=== PATIENT | male | born 1955 | race African-American/Black ===

== ENCOUNTER 2019-07-17 20:15 | Inpatient (IN) ==
[2019-07-17] MEDS ORDERED: PANTOPRAZOLE INJ 80 MG in SODIUM CHLORIDE 0.9% 100 ML IV STA (20:46)
[2019-07-17] MEDS ORDERED: ONDANSETRON 4 MG/2 ML VIAL IV STA (20:46)
[2019-07-17 20:58] LABS: Basophils # 0.1 10*3/uL (0.0-0.2); Basophils % 1.2 % (0.0-0.8); Eosinophils % 0.5 % (0.00-10.9); Hematocrit 33.7 VOL% (42.0-52.0); Hemoglobin 10.5 GM/DL (14.0-18.0); Immature Granulocytes % 0.7 %; Immature Granulocytes Absolute 0.05 #; Lymphocytes # 1.2 10*3/uL (1.4-4.0); Lymphocytes % 16.6 % (21.2-54.2); Mean Corpuscular HGB Conc 31.2 GM/DL (32-36); Mean Corpuscular Volume 88.5 FL (87-102); Mean Platelet Volume 9.9 FL (9.6-12.0); Monocytes % 10.4 % (1.7-12.7); Neutrophils % 70.6 % (38.7-73.9); Platelet Count 158 T/CUMM (130-400); Red Blood Count 3.81 MC/CUMM (3.8-5.5); Red Cell Distribution Width 21.1 % (9.3-17.3); White Blood Count 7.3 T/CUMM (4-12)
[2019-07-17] MEDS ORDERED: PANTOPRAZOLE 40 MG VIAL IV ONE (21:10)
[2019-07-17 21:11] LABS: INR 1.2; PT Patient Result 12.9 SECS (9.8-11.9); Partial Thromboplastin Time 26.9 SECS (23.9-33.8)
[2019-07-17 21:19] LABS: Albumin 3.1 G/DL (3.4-5.0); Bilirubin,Total 2.1 MG/DL (0.2-1.0); Calcium 9.3 MG/DL (8.5-10.1); Total Protein 6.9 G/DL (6.4-8.3)
[2019-07-17] MEDS ORDERED: hydrALAZINE 20 MG/1 ML VIAL IV PRN (23:35)
[2019-07-17] MEDS ORDERED: ACETAMINOPHEN 325 MG TABLET PO PRN (23:35)
[2019-07-17] MEDS ORDERED: diphenhydrAMINE CAP 25 MG CAPSULE PO PRN (23:35)
[2019-07-17] MEDS ORDERED: GLUCAGON 1 MG VIAL IM PRN (23:35)
[2019-07-17] MEDS ORDERED: ONDANSETRON 4 MG/2 ML VIAL IV PRN (23:35)
[2019-07-17] MEDS ORDERED: DEXTROSE 50% 25 GM/50 ML VIAL IV PRN (23:35)
[2019-07-17] MEDS ORDERED: guaiFENesin/DM ER 600-30 MG TABLET PO PRN (23:35)
[2019-07-17] MEDS: PANTOPRAZOLE INJ 200 MG in SODIUM CHLORIDE 0.9% 250 ML IV SCH (23:40)
[2019-07-18 02:30] LABS: Bilirubin,Urine Negative (Negative); Blood, Urine Negative (Negative); Glucose,Urine (UA) Negative (Negative); Ketones,Urine Negative (Negative); Mucus,Urine Occasional /LPF (Occasional); Nitrite,Urine Negative (Negative); Protein,Urine Negative; RBC,Urine <1 /HPF (0-4); Squamous Epithelial Cell,Urine Occasional /HPF (0-10); Urine Appearance CLEAR (Clear); Urine Color Amber (Yellow); Urine Specific Gravity 1.015 (1.001-1.035); WBC,Urine <1 /HPF (0-6)
[2019-07-18] MEDS: SODIUM CHLORIDE 0.9% 1,000 ML IV SCH ×2 (02:34→15:59)
[2019-07-18 03:26] LABS: Basophils # 0.1 10*3/uL (0.0-0.2); Eosinophils % 0.4 % (0.00-10.9); Hematocrit 28.6 VOL% (42.0-52.0); Hemoglobin 8.9 GM/DL (14.0-18.0); Immature Granulocytes % 0.4 %; Immature Granulocytes Absolute 0.03 #; Lymphocytes # 0.7 10*3/uL (1.4-4.0); Lymphocytes % 10.6 % (21.2-54.2); Mean Corpuscular HGB Conc 31.1 GM/DL (32-36); Mean Corpuscular Volume 88.5 FL (87-102); Mean Platelet Volume 8.9 FL (9.6-12.0); Neutrophils % 77.6 % (38.7-73.9); Platelet Count 110 T/CUMM (130-400); Red Blood Count 3.23 MC/CUMM (3.8-5.5); Red Cell Distribution Width 20.7 % (9.3-17.3); White Blood Count 6.8 T/CUMM (4-12)
[2019-07-18 03:49] LABS: Albumin 2.4 G/DL (3.4-5.0); Bilirubin,Total 1.7 MG/DL (0.2-1.0); Calcium 8.8 MG/DL (8.5-10.1); Osmolality,Calculated 290.8 MOS/KG (273-304); Total Protein 5.8 G/DL (6.4-8.3)
[2019-07-18 04:00] LABS: Troponin I 0.109 NG/ML (0.00-0.045)
[2019-07-18 07:57] LABS: Troponin I 0.107 NG/ML (0.00-0.045)
[2019-07-18] MEDS ORDERED: FUROSEMIDE 40 MG TABLET PO SCH (09:00)
[2019-07-18] MEDS ORDERED: METOPROLOL SUCCINATE XL 25 MG TABLET PO SCH (09:00)
[2019-07-18] MEDS: CHOLECALCIFEROL 1,000 UNIT TABLET PO SCH (09:16)
[2019-07-18] MEDS: carvediloL 6.25 MG TABLET PO SCH ×2 (09:16→17:04)
[2019-07-18 10:04] LABS: Hematocrit 28.8 VOL% (42.0-52.0); Hemoglobin 8.9 GM/DL (14.0-18.0)
[2019-07-18 14:59] LABS: CKMB % 3.5 %; Troponin I 0.086 NG/ML (0.00-0.045)
[2019-07-18 15:17] LABS: Hematocrit 28.8 VOL% (42.0-52.0); Hemoglobin 8.9 GM/DL (14.0-18.0)
[2019-07-18] MEDS: LACTULOSE 20 GM/30 ML UDCUP PO SCH ×2 (15:57→22:24)
[2019-07-18 16:30] LABS: Hepatitis B Core IgM Quant 0.17 Index; Hepatitis B Surface Ag Quant 0.13 Index; Hepatitis B Surface Ag Result Negative (Negative); Hepatitis C Virus Ab Quant 0.17 Index; Hepatitis C Virus Ab Result Negative (Negative)
[2019-07-18] MEDS: LORazepam 2 MG/1 ML VIAL IV PRN (17:11)
[2019-07-18] MEDS: FOLIC ACID 1 MG TABLET PO SCH (17:15)
[2019-07-18] MEDS: THIAMINE 100 MG TABLET PO SCH (17:15)
[2019-07-18] MEDS: MULTIVITAMIN (CENTRUM) TABLET PO SCH (17:15)
[2019-07-18] MEDS: PANTOPRAZOLE INJ 200 MG in SODIUM CHLORIDE 0.9% 250 ML IV SCH (22:24)
[2019-07-19] MEDS: SODIUM CHLORIDE 0.9% 1,000 ML IV SCH ×2 (03:00→18:33)
[2019-07-19 05:41] LABS: Basophils % 0.8 % (0.0-0.8); Eosinophils # 0.1 10*3/uL (0.0-0.87); Eosinophils % 1.1 % (0.00-10.9); Hematocrit 29.5 VOL% (42.0-52.0); Hemoglobin 8.6 GM/DL (14.0-18.0); Immature Granulocytes % 0.4 %; Immature Granulocytes Absolute 0.02 #; Lymphocytes # 0.6 10*3/uL (1.4-4.0); Lymphocytes % 10.7 % (21.2-54.2); Mean Corpuscular HGB Conc 29.2 GM/DL (32-36); Mean Corpuscular Volume 93.1 FL (87-102); Mean Platelet Volume 9.1 FL (9.6-12.0); Monocytes % 11.1 % (1.7-12.7); NRBC # 0.03 10*3/uL; Neutrophils % 75.9 % (38.7-73.9); Platelet Count 117 T/CUMM (130-400); Red Blood Count 3.17 MC/CUMM (3.8-5.5); Red Cell Distribution Width 21.2 % (9.3-17.3); White Blood Count 5.2 T/CUMM (4-12)
[2019-07-19 05:58] LABS: Albumin 2.6 G/DL (3.4-5.0); Bilirubin,Direct 1.2 MG/DL (0.0-0.20); Bilirubin,Total 2.2 MG/DL (0.2-1.0); Total Protein 6.3 G/DL (6.4-8.3)
[2019-07-19 05:59] LABS: Albumin 2.6 G/DL (3.4-5.0); Bilirubin,Total 2.1 MG/DL (0.2-1.0); Calcium 8.6 MG/DL (8.5-10.1); Osmolality,Calculated 290.8 MOS/KG (273-304); Total Protein 6.2 G/DL (6.4-8.3)
[2019-07-19] MEDS ORDERED: PANTOPRAZOLE 40 MG VIAL IV SCH (09:00)
[2019-07-19] MEDS ORDERED: ETOMIDATE 20 MG/10 ML VIAL IV ONE (09:00)
[2019-07-19] MEDS ORDERED: propofoL 200 MG/20 ML VIAL IV ONE (09:00)
[2019-07-19] MEDS ORDERED: LIDOCAINE 2% 5 ML VIAL ONE (09:00)
[2019-07-19] MEDS: LACTULOSE 20 GM/30 ML UDCUP PO SCH ×4 (10:35→21:27)
[2019-07-19] MEDS: carvediloL 6.25 MG TABLET PO SCH ×3 (10:36→18:34)
[2019-07-19] MEDS: THIAMINE 100 MG TABLET PO SCH (10:36)
[2019-07-19] MEDS: MULTIVITAMIN (CENTRUM) TABLET PO SCH (10:36)
[2019-07-19] MEDS: FOLIC ACID 1 MG TABLET PO SCH (10:36)
[2019-07-19] MEDS: CHOLECALCIFEROL 1,000 UNIT TABLET PO SCH (10:36)
[2019-07-19] MEDS: chlordiazePOXIDE 10 MG CAPSULE PO SCH ×2 (10:42→21:27)
[2019-07-19 16:09] LABS: Hematocrit 29.7 VOL% (42.0-52.0); Hemoglobin 8.8 GM/DL (14.0-18.0)
[2019-07-20 06:26] LABS: Basophils # 0.1 10*3/uL (0.0-0.2); Basophils % 0.8 % (0.0-0.8); Eosinophils # 0.1 10*3/uL (0.0-0.87); Eosinophils % 2.1 % (0.00-10.9); Hematocrit 28.9 VOL% (42.0-52.0); Hemoglobin 8.5 GM/DL (14.0-18.0); Immature Granulocytes % 0.3 %; Immature Granulocytes Absolute 0.02 #; Lymphocytes # 0.6 10*3/uL (1.4-4.0); Lymphocytes % 10.2 % (21.2-54.2); Mean Corpuscular HGB Conc 29.4 GM/DL (32-36); Mean Corpuscular Volume 94.1 FL (87-102); Mean Platelet Volume 10.5 FL (9.6-12.0); Monocytes % 9.7 % (1.7-12.7); NRBC # 0.04 10*3/uL; Neutrophils % 76.9 % (38.7-73.9); Platelet Count 128 T/CUMM (130-400); Red Blood Count 3.07 MC/CUMM (3.8-5.5); Red Cell Distribution Width 21.1 % (9.3-17.3); White Blood Count 6.1 T/CUMM (4-12)
[2019-07-20 06:49] LABS: Calcium 8.8 MG/DL (8.5-10.1)
[2019-07-20] MEDS: SODIUM CHLORIDE 0.9% 1,000 ML IV SCH ×2 (10:25→17:00)
[2019-07-20] MEDS: THIAMINE 100 MG TABLET PO SCH (10:26)
[2019-07-20] MEDS: PANTOPRAZOLE 40 MG TABLET PO SCH (10:26)
[2019-07-20] MEDS: MULTIVITAMIN (CENTRUM) TABLET PO SCH (10:26)
[2019-07-20] MEDS: CHOLECALCIFEROL 1,000 UNIT TABLET PO SCH (10:26)
[2019-07-20] MEDS: carvediloL 6.25 MG TABLET PO SCH ×2 (10:26→17:36)
[2019-07-20] MEDS: chlordiazePOXIDE 10 MG CAPSULE PO SCH (10:26)
[2019-07-20] MEDS: LACTULOSE 20 GM/30 ML UDCUP PO SCH ×3 (10:27→17:36)
[2019-07-20] MEDS: FOLIC ACID 1 MG TABLET PO SCH (10:27)
[2019-07-20] MEDS: RIFAXIMIN 550 MG TABLET PO SCH (14:23)
[2019-07-20 19:10] LABS: ABG Base Excess -1.5 MMOL/L (-2.5-2.5); ABG HCO3 23.2 MMOL/L (20-26); ABG TCO2 27.1 MMOL/L (23-27); Allen Test Positive
[2019-07-20 19:14] LABS: ABG PH 7.177 (7.35-7.45)
[2019-07-20 19:15] LABS: ABG PCO2 76.5 MM HG (35-48)
[2019-07-20 19:36] LABS: Calcium 8.9 MG/DL (8.5-10.1); Osmolality,Calculated 279.8 MOS/KG (273-304)
[2019-07-20 19:56] LABS: CKMB % 3.3 %; Troponin I 0.038 NG/ML (0.00-0.045)
[2019-07-20] MEDS: ALBUTEROL/IPRATROPIUM 3 ML NEB RESP TX SCH (23:50)
[2019-07-20 23:56] LABS: ABG Base Excess 0.8 MMOL/L (-2.5-2.5); ABG HCO3 24.8 MMOL/L (20-26); ABG PCO2 66.8 MM HG (35-48); ABG PO2 50.5 MM HG (80-95); ABG TCO2 27.6 MMOL/L (23-27)
[2019-07-21] MEDS: LACTULOSE 20 GM/30 ML UDCUP PO SCH ×6 (01:28→21:16)
[2019-07-21] MEDS: RIFAXIMIN 550 MG TABLET PO SCH ×3 (01:28→21:16)
[2019-07-21 01:52] LABS: ABG Base Excess 1.1 MMOL/L (-2.5-2.5); ABG HCO3 25.3 MMOL/L (20-26); ABG Oxygen Saturation 89.7 % (95-100); ABG PCO2 61.2 MM HG (35-48); ABG PH 7.281 (7.35-7.45); ABG PO2 62.8 MM HG (80-95); ABG TCO2 27.1 MMOL/L (23-27); Allen Test Positive; Pt O2 Delivery Device BIPAP
[2019-07-21] MEDS: ALBUTEROL/IPRATROPIUM 3 ML NEB RESP TX SCH ×5 (02:53→19:27)
[2019-07-21 03:02] LABS: Bilirubin,Direct 1.14 MG/DL (0.0-0.20); Bilirubin,Indirect 0.5 MG/DL (0.0-1.0); Bilirubin,Total 1.6 MG/DL (0.2-1.0); Total Protein 7.1 G/DL (6.4-8.3)
[2019-07-21 03:08] LABS: CKMB % 4.2 %; Troponin I 0.03 NG/ML (0.00-0.045)
[2019-07-21 03:14] LABS: INR 1.1; PT Patient Result 11.9 SECS (9.8-11.9); Partial Thromboplastin Time 28.5 SECS (23.9-33.8)
[2019-07-21] MEDS ORDERED: FUROSEMIDE 40 MG/4 ML VIAL IV SCH (08:00)
[2019-07-21] MEDS ORDERED: VANCOMYCIN INJ 1,500 MG in SODIUM CHLORIDE 0.9% 500 ML IV ONE (08:00)
[2019-07-21 08:03] LABS: Basophils % 0.1 % (0.0-0.8); Eosinophils % 0.1 % (0.00-10.9); Hematocrit 29.1 VOL% (42.0-52.0); Hemoglobin 8.5 GM/DL (14.0-18.0); Immature Granulocytes % 0.6 %; Immature Granulocytes Absolute 0.09 #; Lymphocytes # 0.4 10*3/uL (1.4-4.0); Lymphocytes % 2.8 % (21.2-54.2); Mean Corpuscular HGB Conc 29.2 GM/DL (32-36); Mean Corpuscular Volume 93.9 FL (87-102); Mean Platelet Volume 10.5 FL (9.6-12.0); Monocytes % 7.5 % (1.7-12.7); Neutrophils % 88.9 % (38.7-73.9); Platelet Count 129 T/CUMM (130-400); Red Cell Distribution Width 20.6 % (9.3-17.3); White Blood Count 15.5 T/CUMM (4-12)
[2019-07-21 08:28] LABS: Hypochromasia 2+; Lymphocytes 5 % (20-55); Nucleated Red Blood Cells 1 (0-5); Ovalocytes Slight; Segmented Neutrophils 89 % (50-85); Total Cells Counted 100
[2019-07-21 08:31] LABS: Calcium 9.3 MG/DL (8.5-10.1); Osmolality,Calculated 286.3 MOS/KG (273-304)
[2019-07-21] MEDS: THIAMINE 100 MG TABLET PO SCH (09:19)
[2019-07-21] MEDS: PANTOPRAZOLE 40 MG TABLET PO SCH (09:19)
[2019-07-21] MEDS: FOLIC ACID 1 MG TABLET PO SCH (09:19)
[2019-07-21] MEDS: CHOLECALCIFEROL 1,000 UNIT TABLET PO SCH (09:19)
[2019-07-21] MEDS: MULTIVITAMIN (CENTRUM) TABLET PO SCH (09:19)
[2019-07-21] MEDS: carvediloL 6.25 MG TABLET PO SCH ×2 (09:20→17:19)
[2019-07-21] MEDS: LORazepam 2 MG/1 ML VIAL IV PRN (09:21)
[2019-07-21] MEDS: PIPERACILLIN/TAZOBACTAM 3,375 MG in SODIUM CHLORIDE 0.9% 100 ML IV SCH ×2 (10:37→18:20)
[2019-07-21 12:09] LABS: % Iron Saturation 6.9 % (18-50)
[2019-07-22] MEDS: ALBUTEROL/IPRATROPIUM 3 ML NEB RESP TX SCH ×7 (00:47→23:43)
[2019-07-22] MEDS: PIPERACILLIN/TAZOBACTAM 3,375 MG in SODIUM CHLORIDE 0.9% 100 ML IV SCH ×3 (02:19→17:38)
[2019-07-22 06:46] LABS: Calcium 9.3 MG/DL (8.5-10.1); Osmolality,Calculated 279.5 MOS/KG (273-304)
[2019-07-22 07:12] LABS: Basophils % 0.2 % (0.0-0.8); Eosinophils # 0.2 10*3/uL (0.0-0.87); Eosinophils % 0.8 % (0.00-10.9); Hematocrit 28.5 VOL% (42.0-52.0); Hemoglobin 8.6 GM/DL (14.0-18.0); Immature Granulocytes % 1.6 %; Immature Granulocytes Absolute 0.29 #; Lymphocytes # 0.6 10*3/uL (1.4-4.0); Lymphocytes % 3.6 % (21.2-54.2); Mean Corpuscular HGB Conc 30.2 GM/DL (32-36); Mean Corpuscular Volume 93.4 FL (87-102); Mean Platelet Volume 11.1 FL (9.6-12.0); NRBC # 0.03 10*3/uL; Neutrophils % 86.8 % (38.7-73.9); Red Blood Count 3.05 MC/CUMM (3.8-5.5); Red Cell Distribution Width 20.5 % (9.3-17.3); White Blood Count 17.7 T/CUMM (4-12)
[2019-07-22 07:14] LABS: Platelet Count 75 T/CUMM (130-400)
[2019-07-22 08:28] LABS: Band Neutrophils 3 % (0-10); Hypochromasia 2+; Lymphocytes 2 % (20-55); Polychromasia Slight; Segmented Neutrophils 93 % (50-85); Total Cells Counted 100
[2019-07-22 08:29] LABS: Anisocytosis 1+; Microcytosis 1+
[2019-07-22] MEDS: MULTIVITAMIN (CENTRUM) TABLET PO SCH (09:46)
[2019-07-22] MEDS: PANTOPRAZOLE 40 MG TABLET PO SCH (09:46)
[2019-07-22] MEDS: carvediloL 6.25 MG TABLET PO SCH ×2 (09:46→17:38)
[2019-07-22] MEDS: THIAMINE 100 MG TABLET PO SCH (09:46)
[2019-07-22] MEDS: RIFAXIMIN 550 MG TABLET PO SCH ×2 (09:46→21:18)
[2019-07-22] MEDS: CHOLECALCIFEROL 1,000 UNIT TABLET PO SCH (09:46)
[2019-07-22] MEDS: FOLIC ACID 1 MG TABLET PO SCH (09:47)
[2019-07-22] MEDS: LACTULOSE 20 GM/30 ML UDCUP PO SCH ×4 (09:47→21:18)
[2019-07-22] MEDS ORDERED: VANCOMYCIN INJ 1,250 MG in SODIUM CHLORIDE 0.9% 250 ML IV SCH (12:00)
[2019-07-22] MEDS ORDERED: FUROSEMIDE 40 MG/4 ML VIAL IV ONE (15:43)
[2019-07-23] MEDS: PIPERACILLIN/TAZOBACTAM 3,375 MG in SODIUM CHLORIDE 0.9% 100 ML IV SCH ×3 (01:35→17:54)
[2019-07-23] MEDS: ALBUTEROL/IPRATROPIUM 3 ML NEB RESP TX SCH ×5 (02:10→19:30)
[2019-07-23 06:36] LABS: Basophils % 0.1 % (0.0-0.8); Eosinophils % 0.1 % (0.00-10.9); Hematocrit 29.9 VOL% (42.0-52.0); Hemoglobin 8.8 GM/DL (14.0-18.0); Immature Granulocytes % 0.7 %; Immature Granulocytes Absolute 0.09 #; Lymphocytes # 0.5 10*3/uL (1.4-4.0); Lymphocytes % 3.8 % (21.2-54.2); Mean Corpuscular HGB Conc 29.4 GM/DL (32-36); Mean Corpuscular Volume 93.7 FL (87-102); Mean Platelet Volume 10.7 FL (9.6-12.0); Monocytes % 8.4 % (1.7-12.7); NRBC # 0.04 10*3/uL; Neutrophils % 86.9 % (38.7-73.9); Red Blood Count 3.19 MC/CUMM (3.8-5.5); Red Cell Distribution Width 20.4 % (9.3-17.3); White Blood Count 13.5 T/CUMM (4-12)
[2019-07-23 06:39] LABS: Calcium 9.3 MG/DL (8.5-10.1); Osmolality,Calculated 278.1 MOS/KG (273-304)
[2019-07-23 06:54] LABS: Platelet Count 133 T/CUMM (130-400)
[2019-07-23 07:11] LABS: Albumin 2.6 G/DL (3.4-5.0); Bilirubin,Total 2.5 MG/DL (0.2-1.0); Calcium 9.3 MG/DL (8.5-10.1)
[2019-07-23 08:26] LABS: Band Neutrophils 1 % (0-10); Hypochromasia 1+; Lymphocytes 4 % (20-55); Microcytosis 1+; Nucleated Red Blood Cells 1 (0-5); Polychromasia Slight; Segmented Neutrophils 88 % (50-85); Target Cells Slight; Total Cells Counted 100
[2019-07-23 08:27] LABS: Platelet Estimate Adequate
[2019-07-23] MEDS: VANCOMYCIN INJ 1,250 MG in SODIUM CHLORIDE 0.9% 250 ML IV SCH ×2 (08:45→19:44)
[2019-07-23] MEDS: THIAMINE 100 MG TABLET PO SCH (09:58)
[2019-07-23] MEDS: MULTIVITAMIN (CENTRUM) TABLET PO SCH (09:58)
[2019-07-23] MEDS: CHOLECALCIFEROL 1,000 UNIT TABLET PO SCH (09:58)
[2019-07-23] MEDS: LACTULOSE 20 GM/30 ML UDCUP PO SCH ×4 (09:58→20:33)
[2019-07-23] MEDS: carvediloL 6.25 MG TABLET PO SCH ×2 (09:58→17:54)
[2019-07-23] MEDS: PANTOPRAZOLE 40 MG TABLET PO SCH (09:58)
[2019-07-23] MEDS: FOLIC ACID 1 MG TABLET PO SCH (09:58)
[2019-07-23] MEDS: RIFAXIMIN 550 MG TABLET PO SCH ×2 (09:59→20:34)
[2019-07-24] MEDS: ALBUTEROL/IPRATROPIUM 3 ML NEB RESP TX SCH ×6 (00:23→19:38)
[2019-07-24] MEDS: PIPERACILLIN/TAZOBACTAM 3,375 MG in SODIUM CHLORIDE 0.9% 100 ML IV SCH ×2 (01:30→10:38)
[2019-07-24 06:39] LABS: Basophils % 0.1 % (0.0-0.8); Eosinophils % 0.4 % (0.00-10.9); Hematocrit 29.8 VOL% (42.0-52.0); Hemoglobin 8.9 GM/DL (14.0-18.0); Immature Granulocytes % 0.4 %; Immature Granulocytes Absolute 0.04 #; Lymphocytes # 0.5 10*3/uL (1.4-4.0); Lymphocytes % 4.4 % (21.2-54.2); Mean Corpuscular HGB Conc 29.9 GM/DL (32-36); Mean Corpuscular Volume 92.3 FL (87-102); Mean Platelet Volume 10.2 FL (9.6-12.0); Monocytes % 8.1 % (1.7-12.7); NRBC # 0.04 10*3/uL; Neutrophils % 86.6 % (38.7-73.9); Platelet Count 138 T/CUMM (130-400); Red Blood Count 3.23 MC/CUMM (3.8-5.5); Red Cell Distribution Width 19.8 % (9.3-17.3); White Blood Count 10.2 T/CUMM (4-12)
[2019-07-24 07:01] LABS: Anisocytosis 3+; Band Neutrophils 3 % (0-10); Lymphocytes 2 % (20-55); Nucleated Red Blood Cells 2 (0-5); Platelet Estimate Adequate; Segmented Neutrophils 86 % (50-85); Target Cells Few; Total Cells Counted 100
[2019-07-24 07:02] LABS: Hypochromasia Slight; Macrocytosis 1+; Poikilocytosis Slight; Polychromasia Slight
[2019-07-24 07:05] LABS: Calcium 9.4 MG/DL (8.5-10.1); Osmolality,Calculated 280.2 MOS/KG (273-304)
[2019-07-24 07:12] LABS: Albumin 2.8 G/DL (3.4-5.0); Bilirubin,Direct 1.04 MG/DL (0.0-0.20); Bilirubin,Indirect 0.8 MG/DL (0.0-1.0); Bilirubin,Total 1.8 MG/DL (0.2-1.0); Total Protein 6.9 G/DL (6.4-8.3)
[2019-07-24] MEDS: RIFAXIMIN 550 MG TABLET PO SCH ×3 (09:19→20:16)
[2019-07-24] MEDS: MULTIVITAMIN (CENTRUM) TABLET PO SCH (09:19)
[2019-07-24] MEDS: LACTULOSE 20 GM/30 ML UDCUP PO SCH ×5 (09:19→20:16)
[2019-07-24] MEDS: CHOLECALCIFEROL 1,000 UNIT TABLET PO SCH (09:19)
[2019-07-24] MEDS: PANTOPRAZOLE 40 MG TABLET PO SCH (09:19)
[2019-07-24] MEDS: carvediloL 6.25 MG TABLET PO SCH ×2 (09:19→17:19)
[2019-07-24] MEDS: FOLIC ACID 1 MG TABLET PO SCH (09:19)
[2019-07-24] MEDS: THIAMINE 100 MG TABLET PO SCH (09:19)
[2019-07-24] MEDS: VANCOMYCIN INJ 1,250 MG in SODIUM CHLORIDE 0.9% 250 ML IV SCH (10:04)
[2019-07-24 17:11] LABS: ABG Base Excess -3.9 MMOL/L (-2.5-2.5); ABG HCO3 23.9 MMOL/L (20-26); ABG PCO2 53.9 MM HG (35-48); ABG PH 7.264 (7.35-7.45); ABG PO2 145.8 MM HG (80-95); ABG TCO2 25.5 MMOL/L (23-27)
[2019-07-24 17:13] LABS: ABG Oxygen Saturation 98.5 % (95-100)
[2019-07-24] MEDS ORDERED: ALBUMIN 25% 25 GM in PREMIX 1 EACH IV ONE (20:38)
[2019-07-25] MEDS: ALBUTEROL/IPRATROPIUM 3 ML NEB RESP TX SCH ×6 (00:12→20:15)
[2019-07-25 04:47] LABS: Basophils % 0.2 % (0.0-0.8); Eosinophils % 0.2 % (0.00-10.9); Hematocrit 27.7 VOL% (42.0-52.0); Hemoglobin 8.1 GM/DL (14.0-18.0); Immature Granulocytes % 0.8 %; Immature Granulocytes Absolute 0.05 #; Lymphocytes # 0.3 10*3/uL (1.4-4.0); Lymphocytes % 4.6 % (21.2-54.2); Mean Corpuscular HGB Conc 29.2 GM/DL (32-36); Mean Corpuscular Volume 94.9 FL (87-102); Mean Platelet Volume 10.8 FL (9.6-12.0); Monocytes % 10.5 % (1.7-12.7); NRBC # 0.11 10*3/uL; Neutrophils % 83.7 % (38.7-73.9); Platelet Count 114 T/CUMM (130-400); Red Blood Count 2.92 MC/CUMM (3.8-5.5); Red Cell Distribution Width 20.2 % (9.3-17.3); White Blood Count 6.3 T/CUMM (4-12)
[2019-07-25 05:07] LABS: Albumin 2.9 G/DL (3.4-5.0); Bilirubin,Total 2.2 MG/DL (0.2-1.0); Calcium 9.6 MG/DL (8.5-10.1); Osmolality,Calculated 277.8 MOS/KG (273-304); Total Protein 7.1 G/DL (6.4-8.3)
[2019-07-25 05:31] LABS: Lymphocytes 9 % (20-55); Nucleated Red Blood Cells 3 (0-5); Segmented Neutrophils 81 % (50-85); Total Cells Counted 100
[2019-07-25 05:32] LABS: Hypochromasia 1+; Microcytosis 1+; Ovalocytes Few; Platelet Estimate Decreased; Polychromasia Slight
[2019-07-25 05:33] LABS: Anisocytosis 1+
[2019-07-25 05:44] LABS: ABG Base Excess -2.5 MMOL/L (-2.5-2.5); ABG HCO3 22.2 MMOL/L (20-26); ABG Oxygen Saturation 88.1 % (95-100); ABG PO2 67.4 MM HG (80-95); ABG TCO2 25.7 MMOL/L (23-27); Allen Test Positive; Pt O2 Delivery Device BIPAP
[2019-07-25 05:47] LABS: ABG PCO2 71.1 MM HG (35-48); ABG PH 7.186 (7.35-7.45)
[2019-07-25] MEDS ORDERED: ALBUMIN 25% 25 GM in PREMIX 1 EACH IV ONE (08:30)
[2019-07-25] MEDS ORDERED: SODIUM BICARB INJ 150 MEQ in DEXTROSE 5% 850 ML IV SCH (08:30)
[2019-07-25] MEDS: PANTOPRAZOLE 40 MG TABLET PO SCH (09:00)
[2019-07-25] MEDS: RIFAXIMIN 550 MG TABLET PO SCH ×2 (09:00→21:51)
[2019-07-25] MEDS: CHOLECALCIFEROL 1,000 UNIT TABLET PO SCH (09:00)
[2019-07-25] MEDS: THIAMINE 100 MG TABLET PO SCH (09:00)
[2019-07-25 09:01] LABS: ABG Base Excess -1.3 MMOL/L (-2.5-2.5); ABG HCO3 22.5 MMOL/L (20-26); ABG Oxygen Saturation 38.2 % (95-100); ABG TCO2 27.8 MMOL/L (23-27)
[2019-07-25 09:03] LABS: ABG PH 7.173 (7.35-7.45)
[2019-07-25 09:04] LABS: ABG PCO2 78.3 MM HG (35-48); ABG PO2 30.2 MM HG (80-95)
[2019-07-25 10:13] LABS: INR 1.2; PT Patient Result 12.6 SECS (9.8-11.9)
[2019-07-25] MEDS: MEROPENEM 2,000 MG in SODIUM CHLORIDE 0.9% 100 ML IV SCH ×2 (10:58→21:51)
[2019-07-25 12:24] LABS: ABG Base Excess -2.2 MMOL/L (-2.5-2.5); ABG HCO3 22.5 MMOL/L (20-26); ABG Oxygen Saturation 91.7 % (95-100); ABG PCO2 68.9 MM HG (35-48); ABG PO2 74.8 MM HG (80-95); ABG TCO2 25.6 MMOL/L (23-27); Allen Test Positive; Pt O2 Delivery Device BIPAP
[2019-07-25 12:25] LABS: ABG PH 7.199 (7.35-7.45)
[2019-07-25] MEDS: LACTULOSE 20 GM/30 ML UDCUP PO SCH ×4 (13:00→21:51)
[2019-07-25] MEDS ORDERED: CALCIUM GLUCONATE 1,000 MG in SODIUM CHLORIDE 0.9% 100 ML IV ONE (13:24)
[2019-07-25] MEDS ORDERED: CALCIUM GLUCONATE 1,000 MG/10 ML VIAL IV ONE (13:30)
[2019-07-25] MEDS: MULTIVITAMIN (CENTRUM) TABLET PO SCH (13:33)
[2019-07-25] MEDS: FOLIC ACID 1 MG TABLET PO SCH (13:38)
[2019-07-25] MEDS ORDERED: ETOMIDATE 20 MG/10 ML VIAL IV ONE ×2 (16:00→16:23)
[2019-07-25] MEDS ORDERED: SUCCINYLCHOLINE 200 MG/10 ML VIAL ONE (16:01)
[2019-07-25] MEDS ORDERED: SUCCINYLCHOLINE 200 MG/10 ML VIAL IV ONE (16:23)
[2019-07-25] MEDS ORDERED: NOREPINEPHRINE 4 MG/4 ML VIAL IV ONE (16:44)
[2019-07-25] MEDS ORDERED: MIDAZOLAM 2 MG/2 ML VIAL IV ONE (16:50)
[2019-07-25] MEDS ORDERED: MIDAZOLAM 10 MG/2 ML VIAL ONE (16:52)
[2019-07-25] MEDS: NOREPINEPHRINE 8 MG in SODIUM CHLORIDE 0.9% 242 ML IV PRN (17:01)
[2019-07-25 18:16] LABS: ABG Base Excess -2.1 MMOL/L (-2.5-2.5); ABG HCO3 22.7 MMOL/L (20-26); ABG Oxygen Saturation 98.4 % (95-100); ABG PCO2 49.7 MM HG (35-48); ABG PH 7.299 (7.35-7.45); ABG TCO2 23.2 MMOL/L (23-27)
[2019-07-25] MEDS: MIDAZOLAM 100 MG in SODIUM CHLORIDE 0.9% 80 ML IV PRN (18:30)
[2019-07-25 19:00] LABS: Bilirubin,Total 1.8 MG/DL (0.2-1.0); Calcium 9.5 MG/DL (8.5-10.1); Osmolality,Calculated 282.5 MOS/KG (273-304); Total Protein 6.7 G/DL (6.4-8.3)
[2019-07-25] MEDS: fentaNYL INJ 1,250 MCG in SODIUM CHLORIDE 0.9% 225 ML IV PRN (19:40)
[2019-07-25] MEDS: CALCIUM GLUCONATE 2,000 MG in SODIUM CHLORIDE 0.9% 100 ML IV ONE ×2 (19:44→20:20)
[2019-07-25] MEDS: SODIUM CHLORIDE 0.9% 1,000 ML IV SCH (20:00)
[2019-07-25] MEDS: OCTREOTIDE 500 MCG in SODIUM CHLORIDE 0.9% 100 ML IV SCH (21:52)
[2019-07-26] MEDS: fentaNYL INJ 1,250 MCG in SODIUM CHLORIDE 0.9% 225 ML IV PRN ×2 (00:42→05:58)
[2019-07-26] MEDS: ALBUTEROL/IPRATROPIUM 3 ML NEB RESP TX SCH ×7 (01:10→23:38)
[2019-07-26] MEDS: MIDAZOLAM 100 MG in SODIUM CHLORIDE 0.9% 80 ML IV PRN (03:13)
[2019-07-26] MEDS: SODIUM CHLORIDE 0.9% 1,000 ML IV SCH ×3 (03:17→20:12)
[2019-07-26 04:24] LABS: ABG Base Excess -2.1 MMOL/L (-2.5-2.5); ABG HCO3 22.6 MMOL/L (20-26); ABG Oxygen Saturation 87.8 % (95-100); ABG PCO2 42.8 MM HG (35-48); ABG PH 7.347 (7.35-7.45); ABG TCO2 22.3 MMOL/L (23-27)
[2019-07-26 06:46] LABS: Bilirubin,Urine Negative (Negative); Blood, Urine Large mg/dL (Negative); Glucose,Urine (UA) 50 mg/dL (Negative); Granular Casts,Urine 33 /LPF (0-1); Hyaline Casts,Urine 166 /LPF (0-3); Ketones,Urine Negative (Negative); Nitrite,Urine Negative (Negative); Protein,Urine 100 MG/DL; RBC,Urine 8180 /HPF (0-4); Sperm,Urine Few /HPF (Negative); Urine Specific Gravity 1.021 (1.001-1.035); Urine Urobilinogen < 2.0 EU/DL (0.2-1.0); WBC,Urine 487 /HPF (0-6)
[2019-07-26 06:47] LABS: Urine Appearance Turbid (Clear); Urine Color Brown (Yellow)
[2019-07-26] MEDS: MEROPENEM 500 MG in SODIUM CHLORIDE 0.9% 100 ML IV SCH ×2 (09:30→20:25)
[2019-07-26] MEDS: THIAMINE 100 MG TABLET PO SCH (09:46)
[2019-07-26] MEDS: MULTIVITAMIN (CENTRUM) TABLET PO SCH (09:46)
[2019-07-26] MEDS: CHOLECALCIFEROL 1,000 UNIT TABLET PO SCH (09:47)
[2019-07-26] MEDS: LACTULOSE 20 GM/30 ML UDCUP PO SCH ×4 (09:47→20:25)
[2019-07-26] MEDS: FOLIC ACID 1 MG TABLET PO SCH (09:47)
[2019-07-26] MEDS: RIFAXIMIN 550 MG TABLET PO SCH ×2 (09:47→20:26)
[2019-07-26] MEDS: PANTOPRAZOLE 40 MG VIAL IV SCH (09:49)
[2019-07-26] MEDS: methylPREDNISolone SOD SUC 40 MG/1 ML VIAL IV SCH ×2 (09:50→16:00)
[2019-07-26 11:55] LABS: Antinuclear Ab, S 0.9 U
[2019-07-26] MEDS: ALBUMIN 25% 12.5 GM in PREMIX 1 EACH IV SCH ×2 (13:45→20:25)
[2019-07-26] MEDS: OCTREOTIDE 500 MCG in SODIUM CHLORIDE 0.9% 100 ML IV SCH (16:00)
[2019-07-26 17:08] LABS: Eosinophils % 0.4 % (0.00-10.9); Hematocrit 23.4 VOL% (42.0-52.0); Hemoglobin 7.1 GM/DL (14.0-18.0); Immature Granulocytes % 0.6 %; Immature Granulocytes Absolute 0.04 #; Lymphocytes # 0.4 10*3/uL (1.4-4.0); Lymphocytes % 5.1 % (21.2-54.2); Mean Corpuscular HGB Conc 30.3 GM/DL (32-36); Mean Corpuscular Volume 91.8 FL (87-102); Mean Platelet Volume 10.5 FL (9.6-12.0); Monocytes % 8.8 % (1.7-12.7); NRBC # 0.17 10*3/uL; Neutrophils % 85.1 % (38.7-73.9); Platelet Count 116 T/CUMM (130-400); Red Blood Count 2.55 MC/CUMM (3.8-5.5); Red Cell Distribution Width 19.9 % (9.3-17.3); White Blood Count 6.8 T/CUMM (4-12)
[2019-07-26 17:18] LABS: Albumin 2.6 G/DL (3.4-5.0); Bilirubin,Total 1.5 MG/DL (0.2-1.0); Calcium 9.2 MG/DL (8.5-10.1); Osmolality,Calculated 283.4 MOS/KG (273-304); Total Protein 5.9 G/DL (6.4-8.3)
[2019-07-26] MEDS: NOREPINEPHRINE 8 MG in SODIUM CHLORIDE 0.9% 242 ML IV PRN (17:30)
[2019-07-27] MEDS: methylPREDNISolone SOD SUC 40 MG/1 ML VIAL IV SCH ×3 (02:30→17:16)
[2019-07-27] MEDS: ALBUTEROL/IPRATROPIUM 3 ML NEB RESP TX SCH ×6 (02:37→23:23)
[2019-07-27] MEDS: NOREPINEPHRINE 8 MG in SODIUM CHLORIDE 0.9% 242 ML IV PRN ×3 (03:30→21:00)
[2019-07-27 03:52] LABS: Basophils % 0.1 % (0.0-0.8); Hematocrit 27.4 VOL% (42.0-52.0); Hemoglobin 8.3 GM/DL (14.0-18.0); Immature Granulocytes % 0.6 %; Immature Granulocytes Absolute 0.05 #; Lymphocytes # 0.1 10*3/uL (1.4-4.0); Lymphocytes % 1.4 % (21.2-54.2); Mean Corpuscular HGB Conc 30.3 GM/DL (32-36); Mean Platelet Volume 10.6 FL (9.6-12.0); Monocytes % 1.5 % (1.7-12.7); NRBC # 0.31 10*3/uL; Neutrophils % 96.4 % (38.7-73.9); Platelet Count 147 T/CUMM (130-400); Red Blood Count 3.01 MC/CUMM (3.8-5.5); Red Cell Distribution Width 19.5 % (9.3-17.3); White Blood Count 8.9 T/CUMM (4-12)
[2019-07-27 03:56] LABS: ABG Base Excess -7.5 MMOL/L (-2.5-2.5); ABG HCO3 20.1 MMOL/L (20-26); ABG Oxygen Saturation 96.9 % (95-100); ABG PCO2 51.8 MM HG (35-48); ABG PO2 110.2 MM HG (80-95); ABG TCO2 21.7 MMOL/L (23-27)
[2019-07-27 03:58] LABS: ABG PH 7.207 (7.35-7.45)
[2019-07-27] MEDS: ALBUMIN 25% 12.5 GM in PREMIX 1 EACH IV SCH (04:30)
[2019-07-27 04:39] LABS: Hypochromasia 1+; Lymphocytes 3 % (20-55); Microcytosis Slight; Nucleated Red Blood Cells 4 (0-5); Ovalocytes Slight; Platelet Estimate Adequate; Segmented Neutrophils 97 % (50-85); Total Cells Counted 100
[2019-07-27 04:46] LABS: Albumin 3.1 G/DL (3.4-5.0); Bilirubin,Total 1.8 MG/DL (0.2-1.0); Calcium 8.8 MG/DL (8.5-10.1); Osmolality,Calculated 283.5 MOS/KG (273-304)
[2019-07-27] MEDS: SODIUM CHLORIDE 0.9% 1,000 ML IV SCH ×3 (05:40→20:26)
[2019-07-27] MEDS: LACTULOSE 20 GM/30 ML UDCUP PO SCH ×4 (09:37→20:26)
[2019-07-27] MEDS: MULTIVITAMIN (CENTRUM) TABLET PO SCH (09:38)
[2019-07-27] MEDS: RIFAXIMIN 550 MG TABLET PO SCH ×2 (09:38→20:27)
[2019-07-27] MEDS: CHOLECALCIFEROL 1,000 UNIT TABLET PO SCH (09:38)
[2019-07-27] MEDS: THIAMINE 100 MG TABLET PO SCH (09:38)
[2019-07-27] MEDS: FOLIC ACID 1 MG TABLET PO SCH (09:38)
[2019-07-27] MEDS: MEROPENEM 500 MG in SODIUM CHLORIDE 0.9% 100 ML IV SCH ×2 (09:38→20:15)
[2019-07-27] MEDS: PANTOPRAZOLE 40 MG VIAL IV SCH (09:42)
[2019-07-27] MEDS: OCTREOTIDE 500 MCG in SODIUM CHLORIDE 0.9% 100 ML IV SCH (12:15)
[2019-07-27] MEDS ORDERED: HEPARIN 10,000 UNIT/10 ML VIAL IV SCH (14:30)
[2019-07-28] MEDS: SODIUM CHLORIDE 0.9% 1,000 ML IV SCH ×2 (00:40→05:14)
[2019-07-28] MEDS: ALBUTEROL/IPRATROPIUM 3 ML NEB RESP TX SCH ×6 (03:42→23:55)
[2019-07-28] MEDS: methylPREDNISolone SOD SUC 40 MG/1 ML VIAL IV SCH ×3 (04:13→18:23)
[2019-07-28] MEDS: NOREPINEPHRINE 8 MG in SODIUM CHLORIDE 0.9% 242 ML IV PRN ×2 (04:30→18:00)
[2019-07-28 06:25] LABS: ABG Base Excess -6.6 MMOL/L (-2.5-2.5); ABG HCO3 18.9 MMOL/L (20-26); ABG Oxygen Saturation 95.5 % (95-100); ABG PCO2 50.6 MM HG (35-48); ABG PH 7.224 (7.35-7.45); ABG PO2 91.6 MM HG (80-95)
[2019-07-28 06:39] LABS: Albumin 3.3 G/DL (3.4-5.0); Bilirubin,Total 1.8 MG/DL (0.2-1.0); Calcium 8.9 MG/DL (8.5-10.1); Osmolality,Calculated 286.7 MOS/KG (273-304); Total Protein 7.3 G/DL (6.4-8.3)
[2019-07-28 07:45] LABS: Basophils % 0.1 % (0.0-0.8); Hematocrit 26.7 VOL% (42.0-52.0); Hemoglobin 8.4 GM/DL (14.0-18.0); Immature Granulocytes Absolute 0.11 #; Lymphocytes % 0.3 % (21.2-54.2); Mean Corpuscular HGB Conc 31.5 GM/DL (32-36); Mean Corpuscular Volume 88.1 FL (87-102); Mean Platelet Volume 10.3 FL (9.6-12.0); Monocytes % 7.2 % (1.7-12.7); NRBC # 0.81 10*3/uL; Neutrophils % 91.4 % (38.7-73.9); Platelet Count 189 T/CUMM (130-400); Red Blood Count 3.03 MC/CUMM (3.8-5.5); Red Cell Distribution Width 19.5 % (9.3-17.3); White Blood Count 11.1 T/CUMM (4-12)
[2019-07-28 07:52] LABS: Band Neutrophils 4 % (0-10); Nucleated Red Blood Cells 13 (0-5); Platelet Estimate Normal; Segmented Neutrophils 90 % (50-85); Total Cells Counted 100
[2019-07-28 07:53] LABS: Anisocytosis 2+; Hypochromasia 1+; Macrocytosis 2+; Polychromasia Slight
[2019-07-28] MEDS: LACTULOSE 20 GM/30 ML UDCUP PO SCH ×4 (10:50→22:04)
[2019-07-28] MEDS: MULTIVITAMIN (CENTRUM) TABLET PO SCH (10:51)
[2019-07-28] MEDS: CHOLECALCIFEROL 1,000 UNIT TABLET PO SCH (10:51)
[2019-07-28] MEDS: THIAMINE 100 MG TABLET PO SCH (10:51)
[2019-07-28] MEDS: OCTREOTIDE 500 MCG in SODIUM CHLORIDE 0.9% 100 ML IV SCH (10:52)
[2019-07-28] MEDS: NICOTINE 21 MG/24 HR PATCH TRANSDERM PRN (10:53)
[2019-07-28] MEDS: FOLIC ACID 1 MG TABLET PO SCH (10:53)
[2019-07-28] MEDS: PANTOPRAZOLE 40 MG VIAL IV SCH (12:49)
[2019-07-28] MEDS ORDERED: SODIUM CHLORIDE 0.9% 500 ML IV ONE (20:44)
[2019-07-28] MEDS: MEROPENEM 500 MG in SODIUM CHLORIDE 0.9% 100 ML IV SCH (22:04)
[2019-07-29] MEDS: methylPREDNISolone SOD SUC 40 MG/1 ML VIAL IV SCH ×3 (00:23→17:13)
[2019-07-29] MEDS: ALBUTEROL/IPRATROPIUM 3 ML NEB RESP TX SCH ×5 (02:52→21:26)
[2019-07-29 03:47] LABS: ABG Base Excess -2.7 MMOL/L (-2.5-2.5); ABG HCO3 20.9 MMOL/L (20-26); ABG Oxygen Saturation 98.8 % (95-100); ABG PCO2 31.6 MM HG (35-48); ABG PH 7.439 (7.35-7.45); ABG PO2 170.9 MM HG (80-95); ABG TCO2 21.9 MMOL/L (23-27)
[2019-07-29 03:55] LABS: Basophils % 0.1 % (0.0-0.8); Hematocrit 24.4 VOL% (42.0-52.0); Hemoglobin 8.1 GM/DL (14.0-18.0); Immature Granulocytes Absolute 0.42 #; Lymphocytes # 0.2 10*3/uL (1.4-4.0); Lymphocytes % 1.7 % (21.2-54.2); Mean Corpuscular HGB Conc 33.2 GM/DL (32-36); Mean Corpuscular Volume 84.4 FL (87-102); Mean Platelet Volume 9.7 FL (9.6-12.0); Monocytes % 5.7 % (1.7-12.7); NRBC # 0.54 10*3/uL; Neutrophils % 88.5 % (38.7-73.9); Platelet Count 150 T/CUMM (130-400); Red Blood Count 2.89 MC/CUMM (3.8-5.5); Red Cell Distribution Width 19.1 % (9.3-17.3); White Blood Count 10.4 T/CUMM (4-12)
[2019-07-29 04:17] LABS: Albumin 2.9 G/DL (3.4-5.0); Bilirubin,Total 1.6 MG/DL (0.2-1.0); Total Protein 6.5 G/DL (6.4-8.3)
[2019-07-29 04:24] LABS: Band Neutrophils 1 % (0-10); Hypochromasia 1+; Lymphocytes 2 % (20-55); Microcytosis 1+; Nucleated Red Blood Cells 4 (0-5); Platelet Estimate Normal; Segmented Neutrophils 95 % (50-85); Total Cells Counted 100
[2019-07-29 04:25] LABS: Polychromasia Few; Target Cells 1+
[2019-07-29] MEDS ORDERED: VECURONIUM 10 MG VIAL IV ONE (07:56)
[2019-07-29] MEDS ORDERED: ETOMIDATE 20 MG/10 ML VIAL IV ONE (07:56)
[2019-07-29] MEDS ORDERED: HEPARIN 10,000 UNIT/10 ML VIAL IV SCH (08:45)
[2019-07-29] MEDS ORDERED: ALBUMIN 25% 25 GM in PREMIX 1 EACH IV SCH (09:00)
[2019-07-29] MEDS: MULTIVITAMIN (CENTRUM) TABLET PO SCH (09:29)
[2019-07-29] MEDS: THIAMINE 100 MG TABLET PO SCH (09:29)
[2019-07-29] MEDS: CHOLECALCIFEROL 1,000 UNIT TABLET PO SCH (09:29)
[2019-07-29] MEDS: FOLIC ACID 1 MG TABLET PO SCH (09:29)
[2019-07-29] MEDS: LACTULOSE 20 GM/30 ML UDCUP PO SCH ×4 (09:29→20:47)
[2019-07-29] MEDS: NICOTINE 21 MG/24 HR PATCH TRANSDERM PRN (09:30)
[2019-07-29] MEDS: PANTOPRAZOLE 40 MG VIAL IV SCH (11:19)
[2019-07-29] MEDS ORDERED: METOCLOPRAMIDE 10 MG/2 ML VIAL ONE (13:39)
[2019-07-29] MEDS: METOCLOPRAMIDE 10 MG/2 ML VIAL IV SCH (17:13)
[2019-07-29] MEDS: MEROPENEM 500 MG in SODIUM CHLORIDE 0.9% 100 ML IV SCH (20:48)
[2019-07-30] MEDS: methylPREDNISolone SOD SUC 40 MG/1 ML VIAL IV SCH ×2 (00:01→09:49)
[2019-07-30] MEDS: METOCLOPRAMIDE 10 MG/2 ML VIAL IV SCH ×4 (00:01→18:28)
[2019-07-30] MEDS: ALBUTEROL/IPRATROPIUM 3 ML NEB RESP TX SCH ×7 (01:14→23:58)
[2019-07-30 03:52] LABS: ABG Base Excess -0.3 MMOL/L (-2.5-2.5); ABG HCO3 24.2 MMOL/L (20-26); ABG Oxygen Saturation 99.4 % (95-100); ABG PCO2 35.7 MM HG (35-48); ABG TCO2 21.9 MMOL/L (23-27)
[2019-07-30 03:57] LABS: Basophils % 0.1 % (0.0-0.8); Hematocrit 24.1 VOL% (42.0-52.0); Hemoglobin 7.6 GM/DL (14.0-18.0); Immature Granulocytes % 1.2 %; Lymphocytes # 0.2 10*3/uL (1.4-4.0); Lymphocytes % 2.2 % (21.2-54.2); Mean Corpuscular HGB Conc 31.5 GM/DL (32-36); Mean Corpuscular Volume 85.2 FL (87-102); Mean Platelet Volume 10.2 FL (9.6-12.0); Monocytes % 4.2 % (1.7-12.7); NRBC # 0.17 10*3/uL; Neutrophils % 92.3 % (38.7-73.9); Platelet Count 149 T/CUMM (130-400); Red Blood Count 2.83 MC/CUMM (3.8-5.5); White Blood Count 8.6 T/CUMM (4-12)
[2019-07-30 04:17] LABS: Calcium 8.9 MG/DL (8.5-10.1); Osmolality,Calculated 299.5 MOS/KG (273-304)
[2019-07-30 06:02] LABS: Lymphocytes 4 % (20-55); Segmented Neutrophils 95 % (50-85); Total Cells Counted 100
[2019-07-30 06:03] LABS: Anisocytosis 1+; Hypochromasia 1+; Ovalocytes 1+; Platelet Estimate Adequate; Target Cells 1+
[2019-07-30] MEDS: CHOLECALCIFEROL 1,000 UNIT TABLET PO SCH (09:48)
[2019-07-30] MEDS: LACTULOSE 20 GM/30 ML UDCUP PO SCH (09:48)
[2019-07-30] MEDS: MULTIVITAMIN (CENTRUM) TABLET PO SCH (09:49)
[2019-07-30] MEDS: FOLIC ACID 1 MG TABLET PO SCH (09:49)
[2019-07-30] MEDS: PANTOPRAZOLE 40 MG VIAL IV SCH (09:49)
[2019-07-30] MEDS: THIAMINE 100 MG TABLET PO SCH (09:49)
[2019-07-30] MEDS: MEROPENEM 500 MG in SODIUM CHLORIDE 0.9% 100 ML IV SCH (22:40)
[2019-07-31] MEDS: METOCLOPRAMIDE 10 MG/2 ML VIAL IV SCH ×5 (01:12→23:16)
[2019-07-31] MEDS: ALBUTEROL/IPRATROPIUM 3 ML NEB RESP TX SCH ×5 (03:23→19:18)
[2019-07-31 05:40] LABS: ABG Base Excess 0.1 MMOL/L (-2.5-2.5); ABG HCO3 24.5 MMOL/L (20-26); ABG Oxygen Saturation 96.8 % (95-100); ABG PCO2 30.4 MM HG (35-48); ABG PH 7.487 (7.35-7.45); ABG PO2 83.3 MM HG (80-95); ABG TCO2 21.4 MMOL/L (23-27)
[2019-07-31 05:52] LABS: Basophils % 0.1 % (0.0-0.8); Hematocrit 24.1 VOL% (42.0-52.0); Immature Granulocytes % 0.6 %; Immature Granulocytes Absolute 0.06 #; Lymphocytes # 0.2 10*3/uL (1.4-4.0); Lymphocytes % 2.2 % (21.2-54.2); Mean Corpuscular HGB Conc 33.2 GM/DL (32-36); Mean Corpuscular Volume 83.4 FL (87-102); Mean Platelet Volume 9.7 FL (9.6-12.0); Monocytes % 4.2 % (1.7-12.7); NRBC # 0.13 10*3/uL; Neutrophils % 92.9 % (38.7-73.9); Platelet Count 135 T/CUMM (130-400); Red Blood Count 2.89 MC/CUMM (3.8-5.5); Red Cell Distribution Width 18.6 % (9.3-17.3); White Blood Count 9.7 T/CUMM (4-12)
[2019-07-31 06:07] LABS: Calcium 9.2 MG/DL (8.5-10.1); Osmolality,Calculated 305.5 MOS/KG (273-304)
[2019-07-31 06:18] LABS: Hypochromasia 1+; Lymphocytes 3 % (20-55); Nucleated Red Blood Cells 1 (0-5); Ovalocytes Slight; Platelet Estimate Normal; Segmented Neutrophils 96 % (50-85); Total Cells Counted 100
[2019-07-31 06:19] LABS: Microcytosis Slight
[2019-07-31] MEDS: THIAMINE 100 MG TABLET PO SCH (09:57)
[2019-07-31] MEDS: predniSONE 20 MG TABLET PO SCH (09:57)
[2019-07-31] MEDS: FOLIC ACID 1 MG TABLET PO SCH (09:57)
[2019-07-31] MEDS: CHOLECALCIFEROL 1,000 UNIT TABLET PO SCH (09:57)
[2019-07-31] MEDS: PANTOPRAZOLE 40 MG VIAL IV SCH (09:58)
[2019-07-31] MEDS: LACTULOSE 20 GM/30 ML UDCUP PO SCH (09:58)
[2019-07-31] MEDS: MULTIVITAMIN (CENTRUM) TABLET PO SCH (10:12)
[2019-07-31] MEDS: MEROPENEM 500 MG in SODIUM CHLORIDE 0.9% 100 ML IV SCH (20:49)
[2019-07-31] MEDS: INSULIN REGULAR 100 UNIT/ML SUBCUT SCH (23:16)
[2019-08-01] MEDS: ALBUTEROL/IPRATROPIUM 3 ML NEB RESP TX SCH ×7 (00:04→23:00)
[2019-08-01 04:32] LABS: ABG Base Excess -0.2 MMOL/L (-2.5-2.5); ABG HCO3 24.3 MMOL/L (20-26); ABG Oxygen Saturation 98.1 % (95-100); ABG PCO2 39.7 MM HG (35-48); ABG PH 7.399 (7.35-7.45); ABG TCO2 22.7 MMOL/L (23-27)
[2019-08-01 04:40] LABS: Basophils % 0.1 % (0.0-0.8); Hematocrit 26.3 VOL% (42.0-52.0); Hemoglobin 8.5 GM/DL (14.0-18.0); Immature Granulocytes % 0.6 %; Immature Granulocytes Absolute 0.07 #; Lymphocytes # 0.1 10*3/uL (1.4-4.0); Lymphocytes % 1.1 % (21.2-54.2); Mean Corpuscular HGB Conc 32.3 GM/DL (32-36); Mean Corpuscular Volume 85.4 FL (87-102); Mean Platelet Volume 10.1 FL (9.6-12.0); Monocytes % 4.8 % (1.7-12.7); NRBC # 0.15 10*3/uL; Neutrophils % 93.4 % (38.7-73.9); Platelet Count 140 T/CUMM (130-400); Red Blood Count 3.08 MC/CUMM (3.8-5.5); White Blood Count 12.3 T/CUMM (4-12)
[2019-08-01 05:00] LABS: Calcium 8.9 MG/DL (8.5-10.1); Osmolality,Calculated 304.4 MOS/KG (273-304)
[2019-08-01 05:20] LABS: Albumin 2.9 G/DL (3.4-5.0); Bilirubin,Direct 2.1 MG/DL (0.0-0.20); Bilirubin,Indirect 0.7 MG/DL (0.0-1.0); Bilirubin,Total 2.8 MG/DL (0.2-1.0); Total Protein 6.1 G/DL (6.4-8.3)
[2019-08-01 05:25] LABS: Band Neutrophils 2 % (0-10); Lymphocytes 6 % (20-55); Segmented Neutrophils 89 % (50-85); Total Cells Counted 100
[2019-08-01 05:26] LABS: Anisocytosis 1+; Hypochromasia 1+; Microcytosis 1+; Ovalocytes Slight; Polychromasia Slight; Target Cells 1+
[2019-08-01 05:27] LABS: Platelet Estimate Adequate
[2019-08-01] MEDS: INSULIN REGULAR 100 UNIT/ML SUBCUT SCH ×4 (06:54→23:51)
[2019-08-01] MEDS: METOCLOPRAMIDE 10 MG/2 ML VIAL IV SCH ×4 (06:55→23:52)
[2019-08-01] MEDS: FOLIC ACID 1 MG TABLET PO SCH (08:02)
[2019-08-01] MEDS: LACTULOSE 20 GM/30 ML UDCUP PO SCH (08:02)
[2019-08-01] MEDS: predniSONE 20 MG TABLET PO SCH (08:02)
[2019-08-01] MEDS: MULTIVITAMIN LIQUID (CENTRUM) 60 ML BOTTLE PO SCH (08:03)
[2019-08-01] MEDS: PANTOPRAZOLE 40 MG VIAL IV SCH (08:03)
[2019-08-01] MEDS: THIAMINE 100 MG TABLET PO SCH (08:03)
[2019-08-01] MEDS: CHOLECALCIFEROL 1,000 UNIT TABLET PO SCH (08:03)
[2019-08-01] MEDS ORDERED: GLUCAGON 1 MG VIAL IM PRN (08:30)
[2019-08-01] MEDS ORDERED: DEXTROSE 50% 25 GM/50 ML VIAL IV PRN (08:30)
[2019-08-01] MEDS: MEROPENEM 500 MG in SODIUM CHLORIDE 0.9% 100 ML IV SCH (22:05)
[2019-08-02 03:34] LABS: Basophils % 0.1 % (0.0-0.8); Hematocrit 27.3 VOL% (42.0-52.0); Hemoglobin 8.5 GM/DL (14.0-18.0); Immature Granulocytes % 1.2 %; Immature Granulocytes Absolute 0.18 #; Lymphocytes # 0.2 10*3/uL (1.4-4.0); Lymphocytes % 1.1 % (21.2-54.2); Mean Corpuscular HGB Conc 31.1 GM/DL (32-36); Mean Corpuscular Volume 88.1 FL (87-102); Mean Platelet Volume 10.8 FL (9.6-12.0); NRBC # 0.13 10*3/uL; Neutrophils % 92.6 % (38.7-73.9); Platelet Count 133 T/CUMM (130-400); Red Cell Distribution Width 19.6 % (9.3-17.3); White Blood Count 14.8 T/CUMM (4-12)
[2019-08-02 03:49] LABS: Calcium 8.8 MG/DL (8.5-10.1); Osmolality,Calculated 296.7 MOS/KG (273-304)
[2019-08-02 04:34] LABS: Band Neutrophils 1 % (0-10); Hypochromasia 1+; Lymphocytes 4 % (20-55); Microcytosis 1+; Ovalocytes Slight; Platelet Estimate Normal; Segmented Neutrophils 89 % (50-85); Total Cells Counted 100
[2019-08-02] MEDS: ALBUTEROL/IPRATROPIUM 3 ML NEB RESP TX SCH ×4 (04:40→15:52)
[2019-08-02] MEDS: INSULIN REGULAR 100 UNIT/ML SUBCUT SCH ×3 (05:30→17:34)
[2019-08-02] MEDS: METOCLOPRAMIDE 10 MG/2 ML VIAL IV SCH ×2 (07:12→11:40)
[2019-08-02] MEDS: FOLIC ACID 1 MG TABLET PO SCH (08:15)
[2019-08-02] MEDS: PANTOPRAZOLE 40 MG VIAL IV SCH (08:16)
[2019-08-02] MEDS: LACTULOSE 20 GM/30 ML UDCUP PO SCH (08:16)
[2019-08-02] MEDS: predniSONE 20 MG TABLET PO SCH (08:16)
[2019-08-02] MEDS: CHOLECALCIFEROL 1,000 UNIT TABLET PO SCH (08:16)
[2019-08-02] MEDS: MULTIVITAMIN LIQUID (CENTRUM) 60 ML BOTTLE PO SCH (08:16)
[2019-08-02] MEDS: THIAMINE 100 MG TABLET PO SCH (08:16)
[2019-08-02] MEDS: MEROPENEM 500 MG in SODIUM CHLORIDE 0.9% 100 ML IV SCH (20:46)
[2019-08-03] MEDS: ALBUTEROL/IPRATROPIUM 3 ML NEB RESP TX SCH ×8 (03:35→23:43)
[2019-08-03 05:34] LABS: Basophils % 0.1 % (0.0-0.8); Hemoglobin 8.7 GM/DL (14.0-18.0); Immature Granulocytes % 1.1 %; Immature Granulocytes Absolute 0.16 #; Lymphocytes # 0.2 10*3/uL (1.4-4.0); Lymphocytes % 1.2 % (21.2-54.2); Mean Corpuscular HGB Conc 31.1 GM/DL (32-36); Mean Corpuscular Volume 86.7 FL (87-102); Mean Platelet Volume 10.8 FL (9.6-12.0); NRBC # 0.07 10*3/uL; Neutrophils % 93.6 % (38.7-73.9); Platelet Count 137 T/CUMM (130-400); Red Blood Count 3.23 MC/CUMM (3.8-5.5); Red Cell Distribution Width 18.7 % (9.3-17.3); White Blood Count 14.4 T/CUMM (4-12)
[2019-08-03 05:53] LABS: Bilirubin,Total 2.8 MG/DL (0.2-1.0); Calcium 8.9 MG/DL (8.5-10.1); Total Protein 6.5 G/DL (6.4-8.3)
[2019-08-03 06:14] LABS: Hypochromasia 1+; Lymphocytes 1 % (20-55); Microcytosis 1+; Segmented Neutrophils 96 % (50-85); Target Cells Few; Total Cells Counted 100
[2019-08-03 06:15] LABS: Anisocytosis 1+; Platelet Estimate Adequate; Polychromasia Slight
[2019-08-03] MEDS: FOLIC ACID 1 MG TABLET PO SCH (09:00)
[2019-08-03] MEDS: PANTOPRAZOLE 40 MG TABLET PO SCH (09:01)
[2019-08-03] MEDS: THIAMINE 100 MG TABLET PO SCH (09:01)
[2019-08-03] MEDS: CHOLECALCIFEROL 1,000 UNIT TABLET PO SCH (09:01)
[2019-08-03] MEDS: predniSONE 20 MG TABLET PO SCH (09:01)
[2019-08-03] MEDS: MULTIVITAMIN LIQUID (CENTRUM) 60 ML BOTTLE PO SCH (10:11)
[2019-08-03] MEDS: LACTULOSE 20 GM/30 ML UDCUP PO SCH (10:12)
[2019-08-03] MEDS: MEROPENEM 500 MG in SODIUM CHLORIDE 0.9% 100 ML IV SCH (21:49)
[2019-08-04] MEDS: ALBUTEROL/IPRATROPIUM 3 ML NEB RESP TX SCH ×6 (03:40→22:40)
[2019-08-04 06:23] LABS: Basophils % 0.1 % (0.0-0.8); Hematocrit 25.9 VOL% (42.0-52.0); Hemoglobin 8.3 GM/DL (14.0-18.0); Immature Granulocytes % 0.8 %; Immature Granulocytes Absolute 0.09 #; Lymphocytes # 0.2 10*3/uL (1.4-4.0); Mean Platelet Volume 11.7 FL (9.6-12.0); NRBC # 0.06 10*3/uL; Neutrophils % 91.1 % (38.7-73.9); Platelet Count 113 T/CUMM (130-400); Red Blood Count 3.01 MC/CUMM (3.8-5.5); Red Cell Distribution Width 18.6 % (9.3-17.3); White Blood Count 11.9 T/CUMM (4-12)
[2019-08-04 06:43] LABS: Hypochromasia 1+; Lymphocytes 3 % (20-55); Microcytosis 1+; Myelocytes 1 %; Nucleated Red Blood Cells 1 (0-5); Segmented Neutrophils 94 % (50-85); Target Cells Few; Total Cells Counted 100
[2019-08-04 06:44] LABS: Anisocytosis 1+; Platelet Estimate Adequate; Polychromasia Slight
[2019-08-04 06:48] LABS: Albumin 2.8 G/DL (3.4-5.0); Bilirubin,Total 3.1 MG/DL (0.2-1.0); Calcium 8.9 MG/DL (8.5-10.1); Osmolality,Calculated 290.2 MOS/KG (273-304)
[2019-08-04] MEDS: LACTULOSE 20 GM/30 ML UDCUP PO SCH (08:16)
[2019-08-04] MEDS: FOLIC ACID 1 MG TABLET PO SCH (08:16)
[2019-08-04] MEDS: CHOLECALCIFEROL 1,000 UNIT TABLET PO SCH (08:17)
[2019-08-04] MEDS: THIAMINE 100 MG TABLET PO SCH (08:17)
[2019-08-04] MEDS: PANTOPRAZOLE 40 MG TABLET PO SCH (08:17)
[2019-08-04] MEDS: predniSONE 20 MG TABLET PO SCH (08:17)
[2019-08-04] MEDS ORDERED: DEXTROSE 50% 25 GM/50 ML VIAL IV ONE (08:37)
[2019-08-04] MEDS ORDERED: INSULIN REGULAR 100 UNIT/ML IV ONE (08:37)
[2019-08-04 10:55] LABS: ABG Base Excess 1.6 MMOL/L (-2.5-2.5); ABG HCO3 28.5 MMOL/L (20-26); ABG Oxygen Saturation 32.8 % (95-100); ABG PCO2 58.5 MM HG (35-48); ABG PH 7.306 (7.35-7.45); ABG TCO2 30.3 MMOL/L (23-27)
[2019-08-04 10:57] LABS: ABG PO2 25.8 MM HG (80-95)
[2019-08-04 12:19] LABS: ABG Base Excess 1.5 MMOL/L (-2.5-2.5); ABG HCO3 24.7 MMOL/L (20-26); ABG Oxygen Saturation 29.9 % (95-100); ABG PH 7.304 (7.35-7.45); ABG TCO2 27.1 MMOL/L (23-27)
[2019-08-04 12:20] LABS: ABG PO2 24.8 MM HG (80-95)
[2019-08-04] MEDS ORDERED: FUROSEMIDE 40 MG/4 ML VIAL IV ONE (13:02)
[2019-08-04] MEDS: MULTIVITAMIN LIQUID (CENTRUM) 60 ML BOTTLE PO SCH (17:34)
[2019-08-04] MEDS: MEROPENEM 500 MG in SODIUM CHLORIDE 0.9% 100 ML IV SCH (20:33)
[2019-08-05] MEDS: ALBUTEROL/IPRATROPIUM 3 ML NEB RESP TX SCH ×6 (02:50→23:00)
[2019-08-05 05:48] LABS: Basophils % 0.1 % (0.0-0.8); Hematocrit 25.3 VOL% (42.0-52.0); Hemoglobin 8.1 GM/DL (14.0-18.0); Immature Granulocytes % 0.5 %; Immature Granulocytes Absolute 0.06 #; Lymphocytes # 0.3 10*3/uL (1.4-4.0); Lymphocytes % 2.1 % (21.2-54.2); Mean Corpuscular Volume 84.9 FL (87-102); Monocytes % 5.9 % (1.7-12.7); Neutrophils % 91.4 % (38.7-73.9); Platelet Count 139 T/CUMM (130-400); Red Blood Count 2.98 MC/CUMM (3.8-5.5); Red Cell Distribution Width 18.6 % (9.3-17.3); White Blood Count 11.9 T/CUMM (4-12)
[2019-08-05 06:17] LABS: Hypochromasia 1+; Lymphocytes 3 % (20-55); Microcytosis Slight; Ovalocytes Slight; Platelet Estimate Normal; Segmented Neutrophils 93 % (50-85); Total Cells Counted 100
[2019-08-05 06:19] LABS: Albumin 2.9 G/DL (3.4-5.0); Bilirubin,Total 2.9 MG/DL (0.2-1.0); Osmolality,Calculated 295.8 MOS/KG (273-304); Total Protein 6.2 G/DL (6.4-8.3)
[2019-08-05] MEDS: LACTULOSE 20 GM/30 ML UDCUP PO SCH (08:40)
[2019-08-05] MEDS: MULTIVITAMIN LIQUID (CENTRUM) 60 ML BOTTLE PO SCH (08:40)
[2019-08-05] MEDS: THIAMINE 100 MG TABLET PO SCH (08:41)
[2019-08-05] MEDS: FOLIC ACID 1 MG TABLET PO SCH (08:41)
[2019-08-05] MEDS: CHOLECALCIFEROL 1,000 UNIT TABLET PO SCH (08:41)
[2019-08-05] MEDS: PANTOPRAZOLE 40 MG TABLET PO SCH (08:41)
[2019-08-05] MEDS: predniSONE 20 MG TABLET PO SCH (08:41)
[2019-08-05] MEDS ORDERED: INSULIN REGULAR 100 UNIT/ML IV ONE (08:45)
[2019-08-05] MEDS ORDERED: DEXTROSE 50% 25 GM/50 ML VIAL IV ONE (08:45)
[2019-08-05] MEDS ORDERED: CALCIUM GLUCONATE 1,000 MG in SODIUM CHLORIDE 0.9% 100 ML IV ONE (08:45)
[2019-08-05] MEDS ORDERED: FUROSEMIDE 40 MG/4 ML VIAL IV ONE (09:45)
[2019-08-05] MEDS ORDERED: SODIUM POLYSTYRENE SULFATE 15 GM/60 ML BOTTLE PO ONE (14:06)
[2019-08-05] MEDS ORDERED: FUROSEMIDE 40 MG/4 ML VIAL IV SCH (16:00)
[2019-08-06] MEDS: ALBUTEROL/IPRATROPIUM 3 ML NEB RESP TX SCH ×5 (03:00→20:30)
[2019-08-06 05:11] LABS: Basophils % 0.1 % (0.0-0.8); Hemoglobin 8.1 GM/DL (14.0-18.0); Immature Granulocytes % 0.6 %; Immature Granulocytes Absolute 0.07 #; Lymphocytes # 0.1 10*3/uL (1.4-4.0); Lymphocytes % 0.9 % (21.2-54.2); Mean Corpuscular HGB Conc 32.4 GM/DL (32-36); Mean Platelet Volume 11.5 FL (9.6-12.0); Monocytes % 4.6 % (1.7-12.7); Neutrophils % 93.8 % (38.7-73.9); Platelet Count 178 T/CUMM (130-400); Red Blood Count 2.94 MC/CUMM (3.8-5.5); Red Cell Distribution Width 18.5 % (9.3-17.3); White Blood Count 11.6 T/CUMM (4-12)
[2019-08-06 05:24] LABS: Calcium 9.1 MG/DL (8.5-10.1); Osmolality,Calculated 302.8 MOS/KG (273-304)
[2019-08-06 05:31] LABS: Platelet Estimate Adequate; Segmented Neutrophils 95 % (50-85); Total Cells Counted 100
[2019-08-06 05:32] LABS: Hypochromasia 2+; Microcytosis Slight; Ovalocytes Slight
[2019-08-06] MEDS: MULTIVITAMIN LIQUID (CENTRUM) 60 ML BOTTLE PO SCH (08:18)
[2019-08-06] MEDS: PANTOPRAZOLE 40 MG TABLET PO SCH (08:19)
[2019-08-06] MEDS: LACTULOSE 20 GM/30 ML UDCUP PO SCH ×2 (08:19→20:23)
[2019-08-06] MEDS: FOLIC ACID 1 MG TABLET PO SCH (08:20)
[2019-08-06] MEDS: THIAMINE 100 MG TABLET PO SCH (08:20)
[2019-08-06] MEDS: FUROSEMIDE 40 MG/4 ML VIAL IV SCH (08:20)
[2019-08-06] MEDS: predniSONE 20 MG TABLET PO SCH (08:20)
[2019-08-06] MEDS: CHOLECALCIFEROL 1,000 UNIT TABLET PO SCH (08:20)
[2019-08-06] MEDS: METOPROLOL TARTRATE 25 MG TABLET PO SCH ×2 (16:48→20:24)
[2019-08-07] MEDS: ALBUTEROL/IPRATROPIUM 3 ML NEB RESP TX SCH ×6 (00:20→19:48)
[2019-08-07 05:57] LABS: Hematocrit 26.5 VOL% (42.0-52.0); Hemoglobin 8.2 GM/DL (14.0-18.0); Immature Granulocytes % 0.9 %; Immature Granulocytes Absolute 0.12 #; Lymphocytes # 0.3 10*3/uL (1.4-4.0); Lymphocytes % 2.2 % (21.2-54.2); Mean Corpuscular HGB Conc 30.9 GM/DL (32-36); Monocytes % 7.8 % (1.7-12.7); Neutrophils % 89.1 % (38.7-73.9); Platelet Count 223 T/CUMM (130-400); Red Blood Count 3.01 MC/CUMM (3.8-5.5); Red Cell Distribution Width 18.8 % (9.3-17.3); White Blood Count 13.5 T/CUMM (4-12)
[2019-08-07 06:10] LABS: Calcium 9.4 MG/DL (8.5-10.1)
[2019-08-07 07:11] LABS: Band Neutrophils 4 % (0-10); Lymphocytes 3 % (20-55); Metamyelocytes 2 %; Nucleated Red Blood Cells 28 (0-5); Platelet Estimate Normal; Segmented Neutrophils 85 % (50-85); Total Cells Counted 100
[2019-08-07 07:12] LABS: Hypochromasia 2+
[2019-08-07] MEDS: FUROSEMIDE 40 MG/4 ML VIAL IV SCH (08:50)
[2019-08-07] MEDS: MULTIVITAMIN LIQUID (CENTRUM) 60 ML BOTTLE PO SCH (08:50)
[2019-08-07] MEDS: LACTULOSE 20 GM/30 ML UDCUP PO SCH ×2 (08:50→21:28)
[2019-08-07] MEDS: THIAMINE 100 MG TABLET PO SCH (08:52)
[2019-08-07] MEDS: CHOLECALCIFEROL 1,000 UNIT TABLET PO SCH (08:52)
[2019-08-07] MEDS: PANTOPRAZOLE 40 MG TABLET PO SCH (08:52)
[2019-08-07] MEDS: predniSONE 20 MG TABLET PO SCH (08:53)
[2019-08-07] MEDS: METOPROLOL TARTRATE 25 MG TABLET PO SCH ×4 (08:53→22:02)
[2019-08-07] MEDS: FOLIC ACID 1 MG TABLET PO SCH (08:53)
[2019-08-07] MEDS ORDERED: PHENYLEPHRINE DRIP 40 MG/250 ML PREMIX IV ONE (11:30)
[2019-08-07] MEDS: PHENYLEPHRINE DRIP 40 MG/250 ML PREMIX IV PRN ×2 (11:32→13:01)
[2019-08-07 11:41] LABS: Basophils % 0.1 % (0.0-0.8); Eosinophils % 0.1 % (0.00-10.9); Hematocrit 27.7 VOL% (42.0-52.0); Hemoglobin 8.6 GM/DL (14.0-18.0); Immature Granulocytes % 2.7 %; Immature Granulocytes Absolute 0.41 #; Lymphocytes % 6.5 % (21.2-54.2); Mean Corpuscular Volume 88.2 FL (87-102); Mean Platelet Volume 10.5 FL (9.6-12.0); Monocytes % 5.3 % (1.7-12.7); NRBC # 0.03 10*3/uL; Neutrophils % 85.3 % (38.7-73.9); Platelet Count 226 T/CUMM (130-400); Red Blood Count 3.14 MC/CUMM (3.8-5.5); Red Cell Distribution Width 19.2 % (9.3-17.3); White Blood Count 15.2 T/CUMM (4-12)
[2019-08-07] MEDS ORDERED: NOREPINEPHRINE 4 MG/4 ML VIAL IV ONE (11:52)
[2019-08-07] MEDS: NOREPINEPHRINE 16 MG in SODIUM CHLORIDE 0.9% 234 ML IV PRN (11:57)
[2019-08-07] MEDS ORDERED: MIDAZOLAM 10 MG/2 ML VIAL ONE (12:00)
[2019-08-07 12:09] LABS: Bilirubin,Total 2.2 MG/DL (0.2-1.0); Calcium 9.1 MG/DL (8.5-10.1); Osmolality,Calculated 296.1 MOS/KG (273-304); Total Protein 6.7 G/DL (6.4-8.3)
[2019-08-07 12:15] LABS: ABG Base Excess -2.1 MMOL/L (-2.5-2.5); ABG HCO3 21.8 MMOL/L (20-26); ABG Oxygen Saturation 32.5 % (95-100); ABG TCO2 28.3 MMOL/L (23-27)
[2019-08-07 12:17] LABS: ABG PCO2 87.3 MM HG (35-48); ABG PO2 29.4 MM HG (80-95)
[2019-08-07] MEDS ORDERED: MIDAZOLAM 2 MG/2 ML VIAL IV ONE (12:25)
[2019-08-07] MEDS: MIDAZOLAM 100 MG in SODIUM CHLORIDE 0.9% 80 ML IV PRN (13:30)
[2019-08-07 13:39] LABS: ABG Base Excess 0.3 MMOL/L (-2.5-2.5); ABG HCO3 24.8 MMOL/L (20-26); ABG Oxygen Saturation 99.7 % (95-100); ABG PCO2 59.1 MM HG (35-48); ABG PH 7.282 (7.35-7.45); ABG TCO2 26.1 MMOL/L (23-27)
[2019-08-07] MEDS: PHENYLEPHRINE INJ 160 MG in SODIUM CHLORIDE 0.9% 234 ML IV PRN ×2 (15:21→22:49)
[2019-08-07] MEDS: INSULIN REGULAR 100 UNIT/ML SUBCUT SCH ×2 (17:38→23:41)
[2019-08-07 17:51] LABS: ABG Base Excess 1.4 MMOL/L (-2.5-2.5); ABG HCO3 25.6 MMOL/L (20-26); ABG Oxygen Saturation 91.5 % (95-100); ABG PCO2 42.6 MM HG (35-48); ABG PO2 62.9 MM HG (80-95); ABG TCO2 24.4 MMOL/L (23-27)
[2019-08-07] MEDS: CLINDAMYCIN INJ 600 MG in PREMIX 1 EACH IV SCH (20:12)
[2019-08-08] MEDS: ALBUTEROL/IPRATROPIUM 3 ML NEB RESP TX SCH ×6 (00:40→18:59)
[2019-08-08] MEDS ORDERED: DEXTROSE 50% 25 GM/50 ML SYRINGE IV ONE (01:42)
[2019-08-08] MEDS ORDERED: CALCIUM CHLORIDE 1,000 MG/10 ML SYRINGE IV ONE (01:42)
[2019-08-08] MEDS ORDERED: AMIODARONE 150 MG/3 ML VIAL ONE (01:42)
[2019-08-08] MEDS ORDERED: EPINEPHrine 1 MG/10 ML SYRINGE ONE (01:42)
[2019-08-08] MEDS ORDERED: SODIUM BICARBONATE 50 MEQ/50 ML SYRINGE IV ONE (01:42)
[2019-08-08] MEDS: CLINDAMYCIN INJ 600 MG in PREMIX 1 EACH IV SCH ×3 (04:50→19:44)
[2019-08-08] MEDS: INSULIN REGULAR 100 UNIT/ML SUBCUT SCH ×4 (05:10→23:22)
[2019-08-08 05:36] LABS: ABG Base Excess 1.9 MMOL/L (-2.5-2.5); ABG HCO3 25.5 MMOL/L (20-26); ABG Oxygen Saturation 93.9 % (95-100); ABG PCO2 35.8 MM HG (35-48); ABG PO2 73.1 MM HG (80-95); ABG TCO2 26.6 MMOL/L (23-27)
[2019-08-08 05:39] LABS: Basophils % 0.1 % (0.0-0.8); Hematocrit 28.2 VOL% (42.0-52.0); Hemoglobin 9.2 GM/DL (14.0-18.0); Immature Granulocytes % 0.9 %; Immature Granulocytes Absolute 0.28 #; Lymphocytes # 0.4 10*3/uL (1.4-4.0); Lymphocytes % 1.3 % (21.2-54.2); Mean Corpuscular HGB Conc 32.6 GM/DL (32-36); Mean Corpuscular Volume 84.2 FL (87-102); Mean Platelet Volume 10.9 FL (9.6-12.0); Monocytes % 4.3 % (1.7-12.7); Neutrophils % 93.4 % (38.7-73.9); Platelet Count 270 T/CUMM (130-400); Red Blood Count 3.35 MC/CUMM (3.8-5.5); Red Cell Distribution Width 18.8 % (9.3-17.3); White Blood Count 30.5 T/CUMM (4-12)
[2019-08-08 05:53] LABS: Calcium 8.9 MG/DL (8.5-10.1)
[2019-08-08 06:19] LABS: Anisocytosis 3+; Band Neutrophils 20 % (0-10); Lymphocytes 2 % (20-55); Metamyelocytes 1 %; Nucleated Red Blood Cells 1 (0-5); Platelet Estimate Normal; Segmented Neutrophils 75 % (50-85); Total Cells Counted 100
[2019-08-08 06:20] LABS: Macrocytosis 2+; Poikilocytosis 1+; Target Cells 1+
[2019-08-08] MEDS: PHENYLEPHRINE INJ 160 MG in SODIUM CHLORIDE 0.9% 234 ML IV PRN ×3 (06:58→22:34)
[2019-08-08 07:57] VITALS: BP 107/68
[2019-08-08] MEDS: MIDAZOLAM 100 MG in SODIUM CHLORIDE 0.9% 80 ML IV PRN (08:30)
[2019-08-08] MEDS: methylPREDNISolone SOD SUC 40 MG/1 ML VIAL IV SCH ×3 (08:58→23:41)
[2019-08-08] MEDS: CHOLECALCIFEROL 1,000 UNIT TABLET PO SCH (09:00)
[2019-08-08] MEDS: FUROSEMIDE 40 MG/4 ML VIAL IV SCH (09:00)
[2019-08-08] MEDS ORDERED: PANTOPRAZOLE 40 MG VIAL IV SCH (09:00)
[2019-08-08] MEDS: LACTULOSE 20 GM/30 ML UDCUP PO SCH ×2 (09:00→23:22)
[2019-08-08] MEDS: FOLIC ACID 1 MG TABLET PO SCH (09:00)
[2019-08-08] MEDS: THIAMINE 100 MG TABLET PO SCH (09:01)
[2019-08-08] MEDS: MULTIVITAMIN LIQUID (CENTRUM) 60 ML BOTTLE PO SCH (09:01)
[2019-08-08] MEDS: METOPROLOL TARTRATE 25 MG TABLET PO SCH (09:01)
[2019-08-08 10:43] LABS: Troponin I 0.485 NG/ML (0.00-0.045)
[2019-08-08] MEDS: ALBUMIN 25% 25 GM in PREMIX 1 EACH IV SCH ×2 (11:21→17:30)
[2019-08-08 11:58] LABS: Troponin I 0.477 NG/ML (0.00-0.045)
[2019-08-08 15:23] LABS: Troponin I 0.512 NG/ML (0.00-0.045)
[2019-08-08] MEDS: NOREPINEPHRINE 16 MG in SODIUM CHLORIDE 0.9% 234 ML IV PRN (17:30)
[2019-08-09] MEDS: ALBUTEROL/IPRATROPIUM 3 ML NEB RESP TX SCH (00:30)
[2019-08-09] MEDS ORDERED: SODIUM CHLORIDE 0.9% 500 ML IV ONE (01:25)
[2019-08-09 01:30] LABS: ABG Base Excess -10.6 MMOL/L (-2.5-2.5); ABG HCO3 15.9 MMOL/L (20-26); ABG Oxygen Saturation 90.3 % (95-100); ABG PCO2 39.8 MM HG (35-48); ABG PH 7.225 (7.35-7.45); ABG PO2 74.3 MM HG (80-95); ABG TCO2 15.6 MMOL/L (23-27)
== END 2019-08-09 01:44 | disposition expired | DRG 441 ==
LOC: N.EDINP 20:15 → N.ED 20:15 → N.3E 07-18 02:04 → SUATTDRO 07-18 10:19 → N.TELEN 07-20 19:30 → N.ICU 07-25 09:36 → N.4E 08-03 13:05 → N.ICU 08-07 11:15
PROVIDERS: ADMIT Internal Medicine; ATTEND Family Medicine